=== PATIENT | male | born 2000 | race Hispanic/Latino ===

== ENCOUNTER 2021-06-26 01:25 | Inpatient (IN) | payer OTHER ==
[~2021-06-26] VITALS: Ht 170.2 cm; Wt 70.5 kg
[2021-06-26] MEDS ORDERED: NS 1,000 ML IV ONE (01:35)
[2021-06-26 01:50] LABS: BASO # 0.1 10^3/uL (0.0-0.2); BASO % 0.6 % (0.0-1.0); EOS # 0.2 10^3/uL (0.0-0.5); EOS % 2.4 % (0.0-3.0); HEMATOCRIT 49.6 % (42.0-52.0); HEMOGLOBIN 16.5 g/dl (13.5-17.5); LYMPH # 1.6 10^3/uL (1.5-5.0); LYMPH % 20.4 % (24.0-44.0); MEAN CORPUSCULAR HEMOGLOBIN 29.8 pg (27.0-33.0); MEAN CORPUSCULAR HGB CONC 33.3 g/dl (32.0-36.5); MEAN CORPUSCULAR VOLUME 89.5 fl (80.0-96.0); MONO # 0.8 10^3/uL (0.0-0.8); MONO % 10.4 % (2.0-8.0); NEUTROPHILS # 5.2 10^3/uL (1.5-8.5); NEUTROPHILS % 65.9 % (36.0-66.0); PLATELET COUNT, AUTOMATED 305 10^3/uL (150-450); RED BLOOD COUNT 5.54 10^6/uL (4.30-6.10)
[2021-06-26 02:21] LABS: ACETAMINOPHEN LEVEL < 2.0 UG/ML (10.0-30.0); ALBUMIN 4.9 GM/DL (3.2-5.2); ALT/SGPT 34 U/L (12-78); BILIRUBIN,DIRECT 0.1 MG/DL (0.0-0.2); BILIRUBIN,TOTAL 0.4 MG/DL (0.2-1.0); BLOOD UREA NITROGEN 9 MG/DL (7-18); CALCIUM LEVEL 9.6 MG/DL (8.5-10.1); CARBON DIOXIDE LEVEL 27 MEQ/L (21-32); CHLORIDE LEVEL 105 MEQ/L (98-107); CREATININE FOR GFR 0.99 MG/DL (0.70-1.30); ETHYL ALCOHOL (ETHANOL) < 0.003 % (0.000-0.010); GLOMERULAR FILTRATION RATE > 60.0 (>60); GLUCOSE, FASTING 101 MG/DL (70-100); POTASSIUM SERUM 4.3 MEQ/L (3.5-5.1); SALICYLATE LEVEL < 1.7 MG/DL (5.0-30.0); SODIUM LEVEL 141 MEQ/L (136-145); TOTAL PROTEIN 8.9 GM/DL (6.4-8.2)
[2021-06-26 02:24] LABS: AMPHETAMINES LEVEL URINE NEGATIVE (NEGATIVE); BARBITURATES URINE NEGATIVE (NEGATIVE); BENZODIAZEPINES URINE NEGATIVE (NEGATIVE); CANNABINOIDS URINE NEGATIVE (NEGATIVE); COCAINE METABOLITE URINE NEGATIVE (NEGATIVE); METHADONE URINE NEGATIVE (NEGATIVE); OPIATES URINE NEGATIVE (NEGATIVE); PHENCYCLIDINE URINE NEGATIVE (NEGATIVE)
[2021-06-26 03:21] LABS: RSV AMPLIFICATION NEGATIVE (NEGATIVE)
[2021-06-26] MEDS: NICOTINE 21MG/24HR 1 EA TRANSDERMAL TD SCH (09:00)
[2021-06-26] MEDS ORDERED: HOME MED LIST COMPLETE! XX SCH (12:35)
[2021-06-26] MEDS ORDERED: IBUPROFEN 400MG TAB PO PRN (13:35)
[2021-06-26] MEDS ORDERED: MAALOX 30 ML SUSP *UDC PO PRN (13:35)
[2021-06-26] MEDS ORDERED: OLANZapine ORAL DISINTEGRATING TAB 5MG PO PRN (13:35)
[2021-06-26] MEDS ORDERED: MOM 30ML SUSPENSION UDC PO PRN (13:35)
[2021-06-26 16:51] VITALS: BP 146/60
[2021-06-27 06:19] VITALS: BP 128/60
[2021-06-27] MEDS: NICOTINE 21MG/24HR 1 EA TRANSDERMAL TD SCH (09:00)
[2021-06-27 18:06] VITALS: BP 122/74
[2021-06-28 06:27] VITALS: BP 122/60
[2021-06-28] MEDS: NICOTINE 21MG/24HR 1 EA TRANSDERMAL TD SCH (09:58)
[2021-06-28 18:26] VITALS: BP 127/83
[2021-06-28] MEDS ORDERED: traZODone 50 MG TAB PO SCH (21:00)
[2021-06-28] MEDS ORDERED: GI COCKTAIL 50ML BTL(HYOSCYAMINE/MAALOX/LIDOCAINE VISCOUS)(1:3:1) PO ONE (23:00)
[2021-06-29 07:01] VITALS: BP 130/60
[2021-06-29] MEDS: PANTOPRAZOLE 20 MG TAB PO SCH (08:11)
[2021-06-29] MEDS: NICOTINE 21MG/24HR 1 EA TRANSDERMAL TD SCH (08:12)
[2021-06-29] MEDS: hydrOXYzine 50 MG TAB PO PRN ×2 (13:12→19:19)
[2021-06-29 18:03] VITALS: BP 120/70
[2021-06-29] MEDS ORDERED: PSEUDOEPHEDRINE 30 MG TAB PO ONE (21:00)
[2021-06-29] MEDS: traZODone 50 MG TAB PO SCH (21:14)
[2021-06-29] MEDS: FLUTICASONE PROP 0.05% NASAL SPRAY 16 GM (FLONASE) NARES SCH (21:43)
[2021-06-30 06:38] VITALS: BP 117/56
[2021-06-30] MEDS: PANTOPRAZOLE 20 MG TAB PO SCH (08:20)
[2021-06-30] MEDS: FLUTICASONE PROP 0.05% NASAL SPRAY 16 GM (FLONASE) NARES SCH ×2 (08:20→21:00)
[2021-06-30] MEDS: NICOTINE 21MG/24HR 1 EA TRANSDERMAL TD SCH (08:21)
[2021-06-30 18:08] VITALS: BP 146/80
[2021-06-30] MEDS: hydrOXYzine 50 MG TAB PO PRN (19:49)
[2021-06-30] MEDS: traZODone 50 MG TAB PO SCH (21:57)
[2021-07-01 06:36] VITALS: BP 111/65
[2021-07-01] MEDS: NICOTINE 21MG/24HR 1 EA TRANSDERMAL TD SCH (09:04)
[2021-07-01] MEDS: PANTOPRAZOLE 20 MG TAB PO SCH (09:05)
[2021-07-01] MEDS: FLUTICASONE PROP 0.05% NASAL SPRAY 16 GM (FLONASE) NARES SCH (09:05)
[2021-07-01] MEDS ORDERED: TRAZ-252 PO (09:11)
[2021-07-01] MEDS ORDERED: HYDR50TA70 PO (09:11)
[2021-07-01] MEDS ORDERED: FLUTISP NARES (09:11)
[2021-07-01] MEDS ORDERED: LORA-622 PO (09:11)
[2021-07-01] MEDS ORDERED: NICO21PAT TD (09:11)
[2021-07-01] MEDS ORDERED: PANT20TA6 PO (09:11)
[2021-07-01] MEDS: hydrOXYzine 50 MG TAB PO PRN (11:27)
== END 2021-07-01 12:58 | disposition home or self-care (01) | DRG 885 ==
LOC: EDBD 01:25 → M ED 01:25 → M ED INP 13:34 → M PSY 16:58
PROVIDERS: ADMIT Student in an Organized Health Care Education/Training Program; ATTEND Psychiatry & Neurology Psychiatry
DX: F32.2 Major depressive disorder, single episode, severe without psychotic features (principal); F10.10 Alcohol abuse, uncomplicated; Z59.9 Problem related to housing and economic circumstances, unspecified; F17.200 Nicotine dependence, unspecified, uncomplicated; K21.9 Gastro-esophageal reflux disease without esophagitis